=== PATIENT | female | born 1995 | race African-American/Black ===

== ENCOUNTER 2021-08-02 23:16 | Emergency (ER) | payer OTHER ==
[~2021-08-02] VITALS: Ht 160 cm; Wt 59.0 kg
[~2021-08-02 23:16] MED LIST: DICLOFENAC SODI75 MG PO
[2021-08-03] MEDS ORDERED: DUI500 PO (03:02)
[2021-08-03] MEDS ORDERED: METRONIDAZOLE500 MG PO (03:02)
== END 2021-08-03 03:07 | disposition home or self-care (01) ==
LOC: ER 23:16
DX: N76.0 Acute vaginitis (principal)

== ENCOUNTER → 2022-11-11 | Emergency (ER) | payer OTHER ==
[~2022-11-11] VITALS: Ht 157.5 cm; Wt 54.0 kg
[~2022-11-11] MED LIST changes: +DUI500 PO; +METRONIDAZOLE500 MG PO
== END | disposition left against medical advice (07) ==
LOC: ER 23:50
DX: Z53.21 Procedure and treatment not carried out due to patient leaving prior to being seen by health care provider (principal)